=== PATIENT | female | born 1980 | race Caucasian/White ===

== ENCOUNTER 2019-02-21 16:03 | Emergency (ER) | payer OTHER ==
[~2019-02-21] VITALS: Ht 167.6 cm; Wt 77.1 kg
[2019-02-21 16:38] LABS: URINE BILIRUBIN NEGATIVE (Negative); URINE BLOOD 1+ (Negative); URINE CLARITY CLEAR; URINE COLOR YELLOW; URINE GLUCOSE-RANDOM NEGATIVE (Negative); URINE KETONES NEGATIVE (Negative); URINE LEUKOCYTES-REFLEX NEGATIVE (Negative); URINE NITRITE-REFLEX NEGATIVE (Negative); URINE PROTEIN NEGATIVE (Negative); URINE UROBILINOGEN 0.2 E.U./dl (0.2-1.0)
[2019-02-21 16:49] LABS: SQUAMOUS >10 Many /LPF (0-3)
[2019-02-21 16:50] LABS: BACTERIA-REFLEX >30 Many /HPF (None Seen); CASTS None Seen /LPF (None Seen); CRYSTALS None Seen /LPF (None Seen); MUCUS 0-3 Light strn/LPF (None Seen); URINE RBC 0-2 Rare /HPF (0-2); URINE WBC-REFLEX 0-5 Rare /HPF (0-5)
[2019-02-21] MEDS ORDERED: MEDROLDOSEPACK PO (17:05)
[2019-02-21] MEDS ORDERED: ZANAFLEX4 MG PO (17:05)
[2019-02-21] MEDS ORDERED: NABUMETONE 750750 M1 PO (17:05)
[2019-02-21] MEDS ORDERED: ONDANSETRON HCL4 M2 PO (17:52)
[2019-02-21] MEDS ORDERED: TYLENOL WITH CO1 TA1 PO (17:52)
[2019-02-21 18:06] VITALS: BP 125/85
== END 2019-02-21 18:07 | disposition home or self-care (01) ==
LOC: EDBD 16:03 → M.ERS 16:03
PROVIDERS: Nurse Practitioner Family
DX: M54.31 Sciatica, right side (principal); Z90.89 Acquired absence of other organs; Z88.5 Allergy status to narcotic agent

== ENCOUNTER 2019-06-15 22:13 | Emergency (ER) | payer OTHER ==
[~2019-06-15] VITALS: Ht 175.3 cm; Wt 63.5 kg
[~2019-06-15 22:13] MED LIST: MEDROLDOSEPACK PO; NABUMETONE 750750 M1 PO; ONDANSETRON HCL4 M2 PO; TYLENOL WITH CO1 TA1 PO; ZANAFLEX4 MG PO
[2019-06-15] MEDS ORDERED: CYCLOBENZAPRINE5 MG PO (23:45)
[2019-06-15] MEDS ORDERED: MOBIC15 MG PO (23:45)
[2019-06-15 23:56] LABS: URINE BILIRUBIN NEGATIVE (Negative); URINE BLOOD TRACE (Negative); URINE CLARITY CLEAR; URINE COLOR YELLOW; URINE GLUCOSE-RANDOM NEGATIVE (Negative); URINE KETONES NEGATIVE (Negative); URINE LEUKOCYTES-REFLEX NEGATIVE (Negative); URINE NITRITE-REFLEX NEGATIVE (Negative); URINE PROTEIN NEGATIVE (Negative); URINE SPECIFIC GRAVITY <= 1.005 (1.005-1.030); URINE UROBILINOGEN 0.2 E.U./dl (0.2-1.0)
[2019-06-16 00:03] LABS: AMP/METHAMP Negative (Negative); BARBITURATES Negative (Negative); BENZODIAZEPINES Negative (Negative); COCAINE Negative (Negative); METHADONE Negative (Negative); OPIATES Negative (Negative); PCP Negative (Negative); THC Negative (Negative)
[2019-06-16 00:13] VITALS: BP 144/70
== END 2019-06-16 00:15 | disposition home or self-care (01) ==
LOC: M.ERS 22:13
PROVIDERS: Personal Emergency Response Attendant
DX: M54.5 Low back pain (principal); M54.6 Pain in thoracic spine; R60.9 Edema, unspecified; Z88.5 Allergy status to narcotic agent; Z79.899 Other long term (current) drug therapy